=== PATIENT | female | born 1985 | race Caucasian/White ===

== ENCOUNTER → 2018-05-01 | Emergency (ER) | payer BC ==
[~2018-05-01] VITALS: Ht 170.2 cm; Wt 119.7 kg
[~2018-05-01] MED LIST: PERCOCET 5/31 TABLET PO; ZOFRAN4 MG PO
[2018-05-01 11:30] VITALS: BP 144/103
[2018-05-01 12:16] LABS: HEMATOCRIT 46.7 % (36.0-46.0); HEMOGLOBIN 15.9 G/DL (11.9-15.5); MCH 31.2 PG (29.0-34.0); MCV 91.6 FL (83-99); PLATELET COUNT 307 K/uL (156-360); RBC DIS.WIDTH-CV 12.7 % (11.8-14.6); RBC DIS.WIDTH-SD 42.7 % (39-53); WHITE BLOOD COUNT 11.9 K/uL (4.1-10.2)
[2018-05-01 12:26] LABS: ALBUMIN 4.7 g/dL (3.2-4.8)
[2018-05-01 12:27] LABS: CHLORIDE 108 mEq/L (99-109); POTASSIUM 3.7 mEq/L (3.7-5.4); SODIUM 137 mEq/L (136-147)
[2018-05-01 12:29] LABS: GLUCOSE 90 mg/dL (70-99); TOTAL PROTEIN 7.9 g/dL (6.4-8.3)
[2018-05-01 12:31] LABS: TOTAL BILIRUBIN 0.4 mg/dL (0.0-1.0)
[2018-05-01 12:32] LABS: ALKALINE PHOSPHATASE 109 IU/L (3-129)
[2018-05-01 12:33] LABS: GFR ESTIMATE (CALCULATED) > 59 mL/min/
[2018-05-01 12:34] LABS: AST (GOT) 119 IU/L (2-34); UREA NITROGEN (BUN) 13 mg/dL (9-23)
[2018-05-01 12:36] LABS: ALT (GPT) 277 IU/L (3-49)
[2018-05-01 12:41] LABS: QUANTITATIVE HCG < 4.0 MIU/ML
[2018-05-01 14:15] LABS: AMYLASE 33 IU/L (1-118)
[2018-05-01 14:24] LABS: LIPASE 19 U/L (1.0-51.0)
[2018-05-01 16:23] LABS: APPEARANCE CLEAR ((CLEAR)); BILIRUBIN NEGATIVE; BLOOD NEGATIVE; COLOR YELLOW ((YELLOW)); GLUCOSE (STRIP) NEGATIVE; KETONES 20; LEUKOCYTES NEGATIVE; NITRITE NEGATIVE; PROTEIN (STRIP) NEGATIVE; UCUL ADDED? NO; UROBILINOGEN 0.2 MG/DL (0.2-1.0)
[2018-05-01 16:24] LABS: SPECIFIC GRAVITY > 1.060 (1.000-1.030)
== END | disposition home or self-care (01) ==
LOC: EME 11:15
DX: R10.84 Generalized abdominal pain (principal); R19.7 Diarrhea, unspecified; R11.2 Nausea with vomiting, unspecified; M79.606 Pain in leg, unspecified; K76.0 Fatty (change of) liver, not elsewhere classified; K57.30 Diverticulosis of large intestine without perforation or abscess without bleeding; Z90.49 Acquired absence of other specified parts of digestive tract
CPT/HCPCS: 74177; 80053; 81003; 82150; 83630; 83690; 84702; 85027; 87177; 87329; 87425-90; 87493; 99281; 99285; J2405; J3010; J7030